=== PATIENT | female | born 1960 | race Caucasian/White ===

== ENCOUNTER → 2018-01-23 | Outpatient (CLI) | payer SELFPAY ==
--- NOTE | 2018-01-23 13:35 | RAD ---
EXAM: Right lower extremity venous Doppler. HISTORY: Right lower extremity pain/swelling. COMPARISON: None. FINDINGS: Grayscale and Doppler analysis of the right lower extremity deep venous system was performed with graded compression and augmentation. The common femoral, greater saphenous, superficial femoral, popliteal and calf veins were assessed. There is no evidence of deep venous thrombosis. IMPRESSION: 1. No evidence of deep venous thrombosis. Electronically signed by: Carlito Garland MD (01/23/2018 1:32 PM) [place] [id number]
== END | disposition home or self-care (01) ==
LOC: US 12:21
PROVIDERS: ATTEND Family Medicine
DX: R60.0 Localized edema (principal)
CPT/HCPCS: 93971